=== PATIENT | male | born 2000 | race Caucasian/White ===

== ENCOUNTER 2022-02-14 12:20 | Emergency (ER) | payer OTHER ==
[2022-02-14] MEDS ORDERED: Orphenadrine 60 MG/2 ML Inj IM ONE (12:58)
[2022-02-14] MEDS ORDERED: Ketorolac 60 MG/2 ML SDV IM ONE (12:58)
[2022-02-14] MEDS ORDERED: Ketorolac 30 MG/ML SDV ONE (13:12)
[2022-02-14] MEDS ORDERED: Orphenadrine 60 MG/2 ML Inj ONE (13:13)
== END 2022-02-14 13:36 | disposition home or self-care (01) ==
LOC: LB.ED 12:20
DX: M62.838 Other muscle spasm (principal); Z88.8 Allergy status to other drugs, medicaments and biological substances
CPT/HCPCS: 96372; 99283; J1885; J2360

== ENCOUNTER 2024-06-16 21:34 | Emergency (ER) | payer OTHER ==
[2024-06-16] MEDS: Ketorolac 30 MG/ML SDV ONE (23:11)
[2024-06-16] MEDS: Ketorolac 30 MG/ML SDV IM ONE (23:14)
== END 2024-06-16 23:30 | disposition home or self-care (01) ==
LOC: LB.ED 21:34 → EDSEX 21:34 → LB.ED 23:30
DX: M26.602 Left temporomandibular joint disorder, unspecified (principal); Z88.8 Allergy status to other drugs, medicaments and biological substances
CPT/HCPCS: 96372; 99283; J1885